=== PATIENT | female | born 1985 | race Caucasian/White ===

== ENCOUNTER 2019-02-13 14:10 | Emergency (ER) | payer OTHER, SELFPAY ==
[2019-02-13 14:36] VITALS: BP 144/82; PULSE 98; RESP 22; TEMP 36.7; O2SAT 99; BMI 46.3
--- NOTE | 2019-02-13 14:40 | ED.EXTPRO ---
HPI - Extremity Problem <LORA Obregon - Last Filed: 02/13/19 18:32> General Chief complaint: Extremity Problem,Nontraumatic Stated complaint: right leg swollen Time Seen by Provider: 02/13/19 16:06 Source: patient and family Mode of arrival: ambulatory Limitations: no limitations History of Present Illness HPI Narrative: The patient is a 33-year-old female nonsmoker who is 29 weeks who presents with a chief complaint of right leg swelling. She is accompanied to the emergency department by her . Has been swollen for the past few weeks, but she called today and her PCP recommended that she be evaluated for the concern of a blood clot. She denies any fevers nausea vomiting diarrhea. She denies any dysuria urgency frequency vaginal bleeding. She has no abdominal complaints. She denies any chest pain or shortness of breath. She denies any history of blood clots. Related Data Home Medications Medication Instructions Recorded Confirmed PNV cmb#95-ferrous fumarate-FA 1 tab PO DAILY 02/13/19 [] Allergies Allergy/AdvReac Type Severity Reaction Status Date / Time No Known Drug Allergies Allergy Verified 02/13/19 14:38 Review of Systems <LORA Obregon - Last Filed: 02/13/19 18:32> Review of Systems GENERAL: Denies chills, fatigue, malaise, fever, sweats. HEENT: Denies sinus pain, ear pain, sore throat, difficulty swallowing, dizziness. RESPIRATORY: Denies dyspnea, cough, wheezing, hemoptysis, sputum. CARDIOVASCULAR: Denies chest pain, palpitations, orthopnea, edema, GASTROINTESTINAL: Denies nausea, vomiting, abdominal pain, diarrhea, constipation, melena. : Denies dysuria, frequency, incontinence, hematuria, urinary retention. MUSCULOSKELETAL: See HPI SKIN: Denies rash, skin lesions, or other NEUROLOGIC: Denies weakness, headache, numbness, change in speech, confusion, seizures, incoordination. PSYCHIATRIC: No concerning psychosocial issues. 12 point review of systems is negative except for those stated above PFSH <LORA Obregon - Last Filed: 02/13/19 18:32> Medical History (Updated 02/13/19 @ 18:30 by LORA Obregon) History of pre-eclampsia (Acute) Social History Smoking Status: Never smoker Social History Smoking Status: Never smoker Exam <VLADIMIR Obregon-BC - Last Filed: 02/13/19 18:32> Narrative Exam Narrative: GENERAL: This is a well-nourished, well-developed patient, no acute distress HEAD: Atraumatic. Normocephalic. No temporal or scalp tenderness. EYES: Pupils equal round and reactive. Extraocular motions intact. No scleral icterus. No injection or drainage. ENT: Nose without bleeding, purulent drainage or septal hematoma. Throat without erythema, tonsillar hypertrophy or exudate. Uvula midline. Airway patent. NECK: Trachea midline. No JVD or lymphadenopathy. Supple, nontender, no meningeal signs. CARDIOVASCULAR: Regular rate and rhythm RESPIRATORY: Clear to auscultation. Breath sounds equal bilaterally. No wheezes, rales, or rhonchi. No cough. No increased respiratory effort no excess no accessory muscle use. Abdominal: Soft, nontender to palpation. Active bowel sounds all 4 quadrants. Nonrigid abdomen. EXTREMITIES: No clubbing, cyanosis, or edema. No joint tenderness, effusion, or edema noted. Positive pedal pulses bilaterally. BACK: Nontender without deformity or crepitance. No flank tenderness. NEURO: AOx3. SKIN: No rash or erythema visible skin. No erythema ecchymosis rash or abrasion noted right lower leg. Initial Vital Signs Initial Vital Signs: Vital Signs Temperature 98.0 F 02/13/19 14:36 Pulse Rate 98 H 02/13/19 14:36 Respiratory Rate 22 02/13/19 14:36 Blood Pressure 144/82 H 02/13/19 14:36 Pulse Oximetry 99 02/13/19 14:36 <Deanna Padgett DO - Last Filed: 02/14/19 07:49> Initial Vital Signs Initial Vital Signs: Vital Signs Temperature 98.0 F 02/13/19 14:36 Pulse Rate 98 H 02/13/19 14:36 Respiratory Rate 22 02/13/19 14:36 Blood Pressure 144/82 H 02/13/19 14:36 Pulse Oximetry 99 02/13/19 14:36 Course <VLADIMIR Obregon-BC - Last Filed: 02/13/19 18:32> Orders Ordered: ED Orders 02/13/19 14:40 US periph venous low extrem rt Stat Vital Signs - 8 hr 02/13/19 14:36 02/13/19 16:30 Temperature 98.0 F 96.4 F L Pulse Rate 98 H 98 H Respiratory Rate 22 16 Blood Pressure 144/82 H Blood Pressure [Left Arm] 118/53 L Pulse Oximetry 99 100 <Deanna Padgett DO - Last Filed: 02/14/19 07:49> Orders Ordered: ED Orders 02/13/19 14:40 US perip venous low extrem rt Stat Vital Signs - 8 hr 02/13/19 14:36 02/13/19 16:30 Temperature 98.0 F 96.4 F L Pulse Rate 98 H 98 H Respiratory Rate 22 16 Blood Pressure 144/82 H Blood Pressure [Left Arm] 118/53 L Pulse Oximetry 99 100 MDM - Extremity (Nontraumatic) <LORA Obregon - Last Filed: 02/13/19 18:32> Lab Data Point of Care Testing Test Results Positive Urine Dip Bedside Urine Glucose 100 mg/dl Bedside Urine Bilirubin - Negative Bedside Urine Ketone +/- 5 Urine Specific [place] 1.030 Bedside Urine Occult Blood - Negative Bedside Urine pH 6.0 Bedside Urine Protein + 30 Bedside Urine Urobilinogen +/- 1mg Bedside Urine Nitrite - Negative Bedside Urine Leukocytes - Negative Esterase Imaging Data Vascular ultrasound: Radiologist's impression: [place] [address] Ultrasound Report Signed Patient: Bailee Thompson LMR#: [id number] : 1985Acct:[id number] Age/Sex: 33 / FDate of Service: 02/13/19 Loc: ED Accession Number: [id number] Procedure: US periph venous low extrem rt Ordering Provider: Miranda Petty PROCEDURE: US PERIPH VENOUS LOW EXTREM RT INDICATIONS: , SWOLLEN LEG TECHNIQUE: Real-time imaging, as well as color and pulse Doppler interrogation, were performed of the lower extremity deep veins from the inguinal ligament to the popliteal fossa. COMPARISON: None. FINDINGS: The common femoral, femoral and popliteal veins are normally compressible, and free of intraluminal thrombus. Color and pulse Doppler demonstrate normal phasic intraluminal flow. There is normal augmentation response to distal compression maneuver. Note is made of a live fetus with a measured heart rate of 153 beats per minute. IMPRESSION: Negative for deep venous thrombosis. Live fetus. Dictated by: Bryn Ely M.D. on 02/13/2019 at 14:24 Approved by: Bryn Ely M.D. on 02/13/2019 at 14:25 [facility] Narrative Medical decision making narrative: The patient is a 33-year-old female who presents with a chief complaint of right lower leg pain and swelling. Her primary concern is for DVT as she is 29 weeks . Her ultrasound was negative for any clot. Her urine has no signs of infection. Ultrasound also illustrate a live fetus with a heart rate of 153. I discussed at length monitoring for shortness of breath, chest pain, any acute concerns and return to emergency department for any acute concerns of following up with PCP. Patient has no questions or concerns upon discharge request to go home to eat dinner. No questions or concerns upon discharge ambulate steadily outside of the department. <Deanna Padgett DO - Last Filed: 02/14/19 07:49> Lab Data Point of Care Testing Test Results Positive Urine Dip Bedside Urine Glucose 100 mg/dl Bedside Urine Bilirubin - Negative Bedside Urine Ketone +/- 5 Urine Specific [place] 1.030 Bedside Urine Occult Blood - Negative Bedside Urine pH 6.0 Bedside Urine Protein + 30 Bedside Urine Urobilinogen +/- 1mg Bedside Urine Nitrite - Negative Bedside Urine Leukocytes - Negative Esterase Discharge Plan Departure Patient Disposition: Home Clinical Impression: Acute leg pain Qualifiers: Laterality: right Qualified Code(s): M79.604 - Pain in right leg Discharge Date/Time: 02/13/19 16:32 Interventions: ED Discharge Assessment Last Done: 02/13/19 16:31 Instructions: DI for Leg Pain Activity Restrictions/Additional Instructions: Your ultrasound today was negative for any blood clot. Please follow up with her primary care provider as well as your OBGYN. Please come back to the emergency department for any acute concerns such as difficulty breathing. Prescriptions: No Action PNV cmb#95-ferrous fumarate-FA [] 28 mg iron- 800 mcg tablet 1 tab PO DAILY RF: 0 <Deanna Padgett DO - Last Filed: 02/14/19 07:49> Cosign ED Attending Coslilaature Attestation: I was immediately available in the department for consultation. Documentation has been reviewed. I agree with assessment and plan.
[2019-02-13 16:30] VITALS: BP 118/53; PULSE 98; RESP 16; TEMP 35.8; O2SAT 100
--- NOTE | 2019-02-13 18:29 | ED_ITS ---
HPI - Extremity Problem <LORA Obregon - Last Filed: 02/13/19 18:32> General Chief complaint: Extremity Problem,Nontraumatic Stated complaint: right leg swollen Time Seen by Provider: 02/13/19 16:06 Source: patient and family Mode of arrival: ambulatory Limitations: no limitations History of Present Illness HPI Narrative: The patient is a 33-year-old female nonsmoker who is 29 weeks who presents with a chief complaint of right leg swelling. She is accompanied to the emergency department by her . Has been swollen for the past few weeks, but she called today and her PCP recommended that she be evaluated for the concern of a blood clot. She denies any fevers nausea vomiting diarrhea. She denies any dysuria urgency frequency vaginal bleeding. She has no abdominal complaints. She denies any chest pain or shortness of breath. She denies any history of blood clots. Related Data Home Medications Medication Instructions Recorded Confirmed PNV cmb#95-ferrous fumarate-FA 1 tab PO DAILY 02/13/19 [] Allergies Allergy/AdvReac Type Severity Reaction Status Date / Time No Known Drug Allergies Allergy Verified 02/13/19 14:38 Review of Systems <LORA Obregon - Last Filed: 02/13/19 18:32> Review of Systems GENERAL: Denies chills, fatigue, malaise, fever, sweats. HEENT: Denies sinus pain, ear pain, sore throat, difficulty swallowing, diz ziness. RESPIRATORY: Denies dyspnea, cough, wheezing, hemoptysis, sputum. CARDIOVASCULAR: Denies chest pain, palpitations, orthopnea, edema, GASTROINTESTINAL: Denies nausea, vomiting, abdominal pain, diarrhea, constipation, melena. : Denies dysuria, frequency, incontinence, hematuria, urinary retention. MUSCULOSKELETAL: See HPI SKIN: Denies rash, skin lesions, or other NEUROLOGIC: Denies weakness, headache, numbness, change in speech, confusion, seizures, incoordination. PSYCHIATRIC: No concerning psychosocial issues. 12 point review of systems is negative except for those stated above PFSH <LORA Obregon - Last Filed: 02/13/19 18:32> Medical History (Updated 02/13/19 @ 18:30 by LORA Obregon) History of pre-eclampsia (Acute) Social History Smoking Status: Never smoker Social History Smoking Status: Never smoker Exam <VLADIMIR Obregon-BC - Last Filed: 02/13/19 18:32> Narrative Exam Narrative: GENERAL: This is a well-nourished, well-developed patient, no acute distress HEAD: Atraumatic. Normocephalic. No temporal or scalp tenderness. EYES: Pupils equal round and reactive. Extraocular motions intact. No scleral icterus. No injection or drainage. ENT: Nose without bleeding, purulent drainage or septal hematoma. Throat without erythema, tonsillar hypertrophy or exudate. Uvula midline. Airway patent. NECK: Trachea midline. No JVD or lymphadenopathy. Supple, nontender, no meningeal signs. CARDIOVASCULAR: Regular rate and rhythm RESPIRATORY: Clear to auscultation. Breath sounds equal bilaterally. No wheezes, rales, or rhonchi. No cough. No increased respiratory effort no excess no accessory muscle use. Abdominal: Soft, nontender to palpation. Active bowel sounds all 4 quadrants. Nonrigid abdomen. EXTREMITIES: No clubbing, cyanosis, or edema. No joint tenderness, effusion, or edema noted. Positive pedal pulses bilaterally. BACK: Nontender without deformity or crepitance. No flank tenderness. NEURO: AOx3. SKIN: No rash or erythema visible skin. No erythema ecchymosis rash or abrasion noted right lower leg. Initial Vital Signs Initial Vital Signs: Vital Signs Temperature 98.0 F 02/13/19 14:36 Pulse Rate 98 H 02/13/19 14:36 Respiratory Rate 22 02/13/19 14:36 Blood Pressure 144/82 H 02/13/19 14:36 Pulse Oximetry 99 02/13/19 14:36 <Deanna Padgett DO - Last Filed: 02/14/19 07:49> Initial Vital Signs Initial Vital Signs: Vital Signs Temperature 98.0 F 02/13/19 14:36 Pulse Rate 98 H 02/13/19 14:36 Respiratory Rate 22 02/13/19 14:36 Blood Pressure 144/82 H 02/13/19 14:36 Pulse Oximetry 99 02/13/19 14:36 Course <VLADIMIR Obregon-BC - Last Filed: 02/13/19 18:32> Orders Ordered: ED Orders 02/13/19 14:40 US periph venous low extrem rt Stat Vital Signs - 8 hr 02/13/19 14:36 02/13/19 16:30 Temperature 98.0 F 96.4 F L Pulse Rate 98 H 98 H Respiratory Rate 22 16 Blood Pressure 144/82 H Blood Pressure [Left Arm] 118/53 L Pulse Oximetry 99 100 <Deanna Padgett DO - Last Filed: 02/14/19 07:49> Orders Ordered: ED Orders 02/13/19 14:40 US periph venous low extrem rt Stat Vital Signs - 8 hr 02/13/19 14:36 02/13/19 16:30 Temperature 98.0 F 96.4 F L Pulse Rate 98 H 98 H Respiratory Rate 22 16 Blood Pressure 144/82 H Blood Pressure [Left Arm] 118/53 L Pulse Oximetry 99 100 MDM - Extremity (Nontraumatic) <LORA Obregon - Last Filed: 02/13/19 18:32> Lab Data Point of Care Testing Test Results Positive Urine Dip Bedside Urine Glucose 100 mg/dl Bedside Urine Bilirubin - Negative Bedside Urine Ketone +/- 5 Urine Specific [place] 1.030 Bedside Urine Occult Blood - Negative Bedside Urine pH 6.0 Bedside Urine Protein + 30 Bedside Urine Urobilinogen +/- 1mg Bedside Urine Nitrite - Negative Bedside Urine Leukocytes - Negative Esterase Imaging Data Vascular ultrasound: Radiologist's impression: [place] [address] Ultrasound Report Signed Patient: Bailee Thompson LMR#: [id number] : 1985Acct:[id number] Age/Sex: 33 / FDate of Service: 02/13/19 Loc: ED Accession Number: [id number] Procedure: US periph venous low extrem rt Ordering Provider: Miranda Petty PROCEDURE: PERIPH VENOUS LOW EXTREM RT INDICATIONS: , SWOLLEN LEG TECHNIQUE: Real-time imaging, as well as color and pulse Doppler interrogation, were performed of the lower extremity deep veins from the inguinal ligament to the popliteal fossa. COMPARISON: None. FINDINGS: The common femoral, femoral and popliteal veins are normally compressible, and free of intraluminal thrombus. Color and pulse Doppler demonstrate normal phasic intraluminal flow. There is normal augmentation response to distal compression maneuver. Note is made of a live fetus with a measured heart rate of 153 beats per minute. IMPRESSION: Negative for deep venous thrombosis. Live fetus. Dictated by: Bryn Ely M.D. on 02/13/2019 at 14:24 Approved by: Bryn Ely M.D. on 02/13/2019 at 14:25 [facility] Narrative Medical decision making narrative: The patient is a 33-year-old female who presents with a chief complaint of right lower leg pain and swelling. Her primary concern is for DVT as she is 29 weeks . Her ultrasound was negative for any clot. Her urine has no signs of infection. Ultrasound also illustrate a live fetus with a heart rate of 153. I discussed at length monitoring for shortness of breath, chest pain, any acute concerns and return to emergency department for any acute concerns of following up with PCP. Patient has no questions or concerns upon discharge request to go home to eat dinner. No questions or concerns upon discharge ambulate steadily outside of the department. <Deanna Padgett DO - Last Filed: 02/14/19 07:49> Lab Data Point of Care Testing Test Results Positive Urine Dip Bedside Urine Glucose 100 mg/dl Bedside Urine Bilirubin - Negative Bedside Urine Ketone +/- 5 Urine Specific [place] 1.030 Bedside Urine Occult Blood - Negative Bedside Urine pH 6.0 Bedside Urine Protein + 30 Bedside Urine Urobilinogen +/- 1mg Bedside Urine Nitrite - Negative Bedside Urine Leukocytes - Negative Esterase Discharge Plan Departure Patient Disposition: Home Clinical Impression: Acute leg pain Qualifiers: Laterality: right Qualified Code(s): M79.604 - Pain in right leg Discharge Date/Time: 02/13/19 16:32 Interventions: ED Discharge Assessment Last Done: 02/13/19 16:31 Instructions: DI for Leg Pain Activity Restrictions/Additional Instructions: Your ultrasound today was negative for any blood clot. Please follow up with her primary care provider as well as your OBGYN. Please come back to the emergency department for any acute concerns such as difficulty breathing. Prescriptions: No Action PNV cmb#95-ferrous fumarate-FA [] 28 mg iron- 800 mcg tablet 1 tab PO DAILY RF: 0 <Deanna Padgett DO - Last Filed: 02/14/19 07:49> Cosign ED Attending Cosignature Attestation: I was immediately available in the department for consultation. Documentation has been reviewed. I agree with assessment and plan.
== END 2019-02-13 16:32 | disposition home or self-care (01) ==
PROVIDERS: Emergency Provider Nurse Practitioner Family
DX: M79.604 Pain in right leg (principal)
CPT/HCPCS: 81003; 81025; 93971; 99282; 99284